=== PATIENT | female | born 1990 | race African-American/Black ===

== ENCOUNTER 2016-10-15 03:52 | Emergency (ER) | payer BC ==
[~2016-10-15] VITALS: Ht 177.8 cm; Wt 128.8 kg
[~2016-10-15 03:52] MED LIST: AUGMENTIN875 MG PO; ERYTHROMYCIN O3.5 GM LEFT EYE; FLONASE16 G1 BOTH NARES; KEFLEX500 MG PO; KENALOG,ARISTOC80 G1 TP; VIGAMOX3 ML BOTH EYES; [UNRECOGNIZED DRUG - REMARK]
[2016-10-15 03:55] VITALS: BP 152/91
== END 2016-10-15 05:43 | disposition home or self-care (01) ==
LOC: EME 03:52
DX: T78.40XA Allergy, unspecified, initial encounter (principal); X58.XXXA Exposure to other specified factors, initial encounter; R59.1 Generalized enlarged lymph nodes; F17.200 Nicotine dependence, unspecified, uncomplicated
CPT/HCPCS: 99281; 99284; J1100

== ENCOUNTER 2016-10-17 07:17 | Emergency (ER) | payer BC ==
[~2016-10-17] VITALS: Ht 177.8 cm; Wt 130.2 kg
[2016-10-17 07:23] VITALS: BP 147/78
[2016-10-17] MEDS ORDERED: WESTCORT 0.2% C15 GM TP ×2 (09:34→09:43)
== END 2016-10-17 09:45 | disposition home or self-care (01) ==
LOC: EME 07:17
DX: L24.3 Irritant contact dermatitis due to cosmetics (principal)
CPT/HCPCS: 99281; 99283